=== PATIENT | male | born 1955 | race Caucasian/White ===

== ENCOUNTER → 2022-08-16 | Outpatient (CLI) | payer MEDICARE, MEDICAID ==
--- NOTE | 2022-08-16 17:34 | Diagnostic Imaging Report ---
INDICATION: Dyspnea and cough. TECHNIQUE: PA and lateral views of the chest are obtained with comparison made to study of 03/07/2015. FINDINGS: Heart size is within normal limits. Pulmonary vascularity is at the upper limits of normal. There is no pneumothorax or overt edema. Occasional calcified granulomas are seen bilaterally. There is no significant pleural fluid. Diffuse thoracic spondylosis has shown mild worsening. IMPRESSION: Mild worsening of chronic findings in the spine and pulmonary vascularity at the upper limits of normal. Otherwise, no overt edema or other acute abnormality is seen. Dictated by: Dictated on workstation # [id number]
== END ==
LOC: RAD FS 14:10
PROVIDERS: ATTEND Nurse Practitioner
DX: M47.814 Spondylosis without myelopathy or radiculopathy, thoracic region (principal); R06.02 Shortness of breath; R05.8 Other specified cough
CPT/HCPCS: 71046

== ENCOUNTER 2022-10-23 10:29 | Observation (INO) | payer MEDICARE, MEDICAID ==
[~2022-10-23] VITALS: Ht 177.8 cm; Wt 105.5 kg
--- NOTE | 2022-10-23 10:40 | ED Chest Pain ---
General Chief Complaint: Chest Pain Stated Complaint: CHEST PAIN; SOB Source: patient Exam Limitations: no limitations History of Present Illness Date Seen by Provider: Oct 23, 2022 Time Seen by Provider: 10:00 Initial Comments Patient is a 67-year-old male with history of CAD, COPD who presents with chest tightness waking him from sleep approximately 7 hours prior to arrival. Patient states he woke up with shortness of breath and chest tightness and was unable to sleep. He denies cough, sore throat, fever chills or sweats. He denies nausea vomiting sweats. No leg pain or swelling. States symptoms are more similar to previous acute coronary syndrome. Most recent heart catheter stent placement was 2 years ago. Aspirin and nitroglycerin given temporary resolution of symptoms. No other symptoms or complaints. Patient is a non-smoker. Timing/Duration: other Severity/Quality: other Location: other Radiation: other Activities at Onset: other Prior CP/Workup: other Modifying Factors: improves with other Allergies and Home Medications Allergies Coded Allergies: Penicillins (Verified Allergy, Unknown, 10/23/22) Sulfa (Sulfonamide Antibiotics) (Verified Allergy, Unknown, 10/23/22) morphine (Verified Allergy, Unknown, 10/23/22) Patient Home Medication List Home Medication List Reviewed: Yes Review of Systems Review of Systems Constitutional: see HPI EENTM: See HPI Respiratory: See HPI Cardiovascular: See HPI Gastrointestinal: See HPI Genitourinary: See HPI Musculoskeletal: see HPI Skin: see HPI Psychiatric/Neurological: See HPI Endocrine: See HPI Hematologic/Lymphatic: See HPI All Other Systems Reviewed Negative Unless Noted: No Past Jrhidax-Bgtlzm-Ypwnhs Hx Patient Social History Tobacco Use?: No Physical Exam Vital Signs Vital Signs - First Documented 10/23/22 10:29 Temp 36.8 Pulse 80 Resp 16 B/P (MAP) 145/76 (99) O2 Delivery Room Air Capillary Refill : Height, Weight, BMI Height: '" Weight: lbs. oz. kg; BMI Method: General Appearance: No Apparent Distress, WD/WN HEENT: PERRL/EOMI, TMs Normal Neck: Full Range of Motion, Normal Inspection Respiratory: Chest Non Tender, Lungs Clear Cardiovascular: Regular Rate, Rhythm, No Edema, Other (Mild trace peripheral edema) Gastrointestinal: Non Tender, Soft Extremity: Non Tender, No Calf Tenderness Neurologic/Psychiatric: Alert, Oriented x3 Focused Exam Sepsis Stage: Ruled Out Progress/Results/Core Measures Results/Orders Lab Results Laboratory Tests Test 10/23/22 10:32 Range/Units White Blood Count 8.6 4.3-11.0 10^3/uL Red Blood Count 4.64 4.30-5.52 10^6/uL Hemoglobin 14.3 13.3-17.7 g/dL Hematocrit 42 40-54 % Mean Corpuscular Volume 91 80-99 fL Mean Corpuscular Hemoglobin 31 25-34 pg Mean Corpuscular Hemoglobin Concent 34 32-36 g/dL Red Cell Distribution Width 12.3 10.0-14.5 % Platelet Count 144 130-400 10^3/uL Mean Platelet Volume 10.8 9.0-12.2 fL Immature Granulocyte % (Auto) 0 % Neutrophils (%) (Auto) 69 42-75 % Lymphocytes (%) (Auto) 18 12-44 % Monocytes (%) (Auto) 9 0-12 % Eosinophils (%) (Auto) 3 0-10 % Basophils (%) (Auto) 0 0-10 % Neutrophils # (Auto) 5.9 1.8-7.8 10^3/uL Lymphocytes # (Auto) 1.6 1.0-4.0 10^3/uL Monocytes # (Auto) 0.8 0.0-1.0 10^3/uL Eosinophils # (Auto) 0.3 0.0-0.3 10^3/uL Basophils # (Auto) 0.0 0.0-0.1 10^3/uL Immature Granulocyte # (Auto) 0.0 0.0-0.1 10^3/uL Percent Immature Platelet Fraction 4.6 0.0-7.6 % Sodium Level 139 135-145 MMOL/L Potassium Level 4.1 3.6-5.0 MMOL/L Chloride Level 102 98-107 MMOL/L Carbon Dioxide Level 26 21-32 MMOL/L Anion Gap 11 5-14 MMOL/L Blood Urea Nitrogen 19 H 7-18 MG/DL Creatinine 1.12 0.60-1.30 MG/DL Estimat Glomerular Filtration Rate 71 BUN/Creatinine Ratio 17 Glucose Level 175 H 70-105 MG/DL Calcium Level 9.5 8.5-10.1 MG/DL Corrected Calcium 9.4 8.5-10.1 MG/DL Total Bilirubin 1.7 H 0.1-1.0 MG/DL Aspartate Amino Transf (AST/SGOT) 25 5-34 U/L Alanine Aminotransferase (ALT/SGPT) 29 0-55 U/L Alkaline Phosphatase 28 L 40-136 U/L Troponin I < 0.30 <0.30 NG/ML Pro-B-Type Natriuretic Peptide 433.8 H <125.0 PG/ML Total Protein 6.7 6.4-8.2 GM/DL Albumin 4.1 3.2-4.5 GM/DL My Orders Orders - WILEY OLIVER DO Cbc With Automated Diff (10/23/22 10:34) Comprehensive Metabolic Panel (10/23/22 10:34) Troponin I Fs (10/23/22 10:34) Chest 1 View Ap/Pa Only (10/23/22 10:34) Ekg Tracing (10/23/22 10:34) Fentanyl Inj (Sublimaze Injection) (10/23/22 10:45) Ondansetron Injection (Zofran Injectio (10/23/22 10:45) Nitroglycerin Ointment (Nitrobid Ointme (10/23/22 10:45) Probnp Fs (10/23/22 10:46) Furosemide Injection (Lasix Injection) (10/23/22 11:30) Medications Given in ED Current Medications Medications Dose Ordered Sig/Ino Route Start Time Stop Time Status Last Admin Dose Admin Fentanyl Citrate 50 mcg ONCE ONCE IVP 10/23/22 10:45 10/23/22 10:46 DC 10/23/22 10:50 50 MCG Nitroglycerin 1 inch ONCE ONCE TOP 10/23/22 10:45 10/23/22 10:46 DC 10/23/22 10:50 1 INCH Ondansetron HCl 4 mg ONCE ONCE IVP 10/23/22 10:45 10/23/22 10:46 DC 10/23/22 10:50 4 MG Vital Signs/I&O 10/23/22 10:29 Temp 36.8 Pulse 80 Resp 16 B/P (MAP) 145/76 (99) O2 Delivery Room Air Departure Communication (Admissions) EKG: Sinus rhythm, incomplete right bundle branch block, nonspecific ST depression, no acute ST segment elevation. Chest x-ray: Cardiomegaly with mild pulmonary vascular congestion per radiology report. Atypical chest pain with shortness of breath with improvement with nitroglycerin Lasix and aspirin initial troponin and EKG nonacute. Will admit to the hospitalist service with anticipated cardiology consult. Impression Primary Impression: Chest pain Additional Impression: Dyspnea Disposition: ADMITTED INPATIENT Condition: Stable Transfer Method of Transfer: EMS Departure-Patient Inst. Decision time for Depature: 11:32 Referrals: JASBIR SIM APRN (PCP) Primary Care Physician H[facility]IL[facility] (Family) Primary Care Physician WILEY OLIVER DO Oct 23, 2022 10:40
[2022-10-23] MEDS ORDERED: NITROGLYCERIN 2% OINT 1 GM UNIT DOSE PACKET TOP ONE (10:45)
[2022-10-23] MEDS ORDERED: ONDANSETRON 4 MG/2 ML (SDV) Z0FRAN IVP ONE (10:45)
[2022-10-23] MEDS ORDERED: fentaNYL INJ 100 MCG/2 ML AMP IVP ONE (10:45)
--- NOTE | 2022-10-23 10:53 | Diagnostic Imaging Report ---
INDICATION: Chest pain. TECHNIQUE: Single-view chest at 10:39 a.m. CORRELATION STUDY: 08/16/2022. FINDINGS: Prior sternotomy change. Generator pack has been placed over the right hilar region, obscuring this portion of the anatomy. Heart size and mediastinum do appear to be enlarged and more prominent from prior. Vasculature is perhaps slightly increased. The lungs are clear with no consolidating infiltrate. There is no significant effusion or pneumothorax. IMPRESSION: 1. Interval enlargement of the heart size, mediastinum and borderline vasculature, may be largely attributed to technique. Early edema is not completely excluded. Dictated by: Dictated on workstation # [id number]
[2022-10-23 11:01] LABS: BASOPHILS % (AUTO) 0 % (0-10); EOSINOPHILS # (AUTO) 0.3 10^3/uL (0.0-0.3); EOSINOPHILS % (AUTO) 3 % (0-10); HEMATOCRIT 42 % (40-54); HEMOGLOBIN 14.3 g/dL (13.3-17.7); LYMPHOCYTES # (AUTO) 1.6 10^3/uL (1.0-4.0); LYMPHOCYTES % (AUTO) 18 % (12-44); MEAN CORPUSCULAR HEMOGLOBIN 31 pg (25-34); MEAN CORPUSCULAR HGB CONC 34 g/dL (32-36); MEAN CORPUSCULAR VOLUME 91 fL (80-99); MEAN PLATELET VOLUME 10.8 fL (9.0-12.2); MONOCYTES # (AUTO) 0.8 10^3/uL (0.0-1.0); MONOCYTES % (AUTO) 9 % (0-12); NEUTROPHILS # (AUTO) 5.9 10^3/uL (1.8-7.8); NEUTROPHILS % (AUTO) 69 % (42-75); PLATELET COUNT 144 10^3/uL (130-400); WHITE BLOOD COUNT 8.6 10^3/uL (4.3-11.0)
[2022-10-23 11:02] LABS: BUN/CREATININE RATIO 17; CARBON DIOXIDE 26 MMOL/L (21-32); CHLORIDE 102 MMOL/L (98-107); CREATININE SERUM 1.12 MG/DL (0.60-1.30); GFR ESTIMATED 71; GLUCOSE 175 MG/DL (70-105); POTASSIUM 4.1 MMOL/L (3.6-5.0); SODIUM 139 MMOL/L (135-145)
[2022-10-23 11:03] LABS: ALANINE AMINOTRANSFERASE 29 U/L (0-55); ALBUMIN 4.1 GM/DL (3.2-4.5); ALKALINE PHOSPHATASE 28 U/L (40-136); BILIRUBIN,TOTAL 1.7 MG/DL (0.1-1.0); CALCIUM 9.5 MG/DL (8.5-10.1); TOTAL PROTEIN 6.7 GM/DL (6.4-8.2)
[2022-10-23] MEDS ORDERED: FUROSEMIDE 40 MG/4 ML INJ (LASIX) IVP ONE (11:30)
[2022-10-23] MEDS ORDERED: ONDANSETRON 4 MG (ZOFRAN) ORAL DISSOLVE TAB PO PRN (13:45)
[2022-10-23] MEDS ORDERED: polyethylene glycoL POWDER 17 GM (MIRALAX) PACK PO PRN (13:45)
[2022-10-23] MEDS ORDERED: diphenhydrAMINE 25 MG TAB (BENADRYL) PO PRN (13:45)
[2022-10-23] MEDS ORDERED: NS IV 500 ML 500 ML IV PRN (13:45)
[2022-10-23] MEDS ORDERED: ACETAMINOPHEN 325 MG TABLET PO PRN (13:45)
[2022-10-23] MEDS ORDERED: MELATONIN 3 MG TABLET PO PRN (13:45)
[2022-10-23] MEDS ORDERED: diphenhydrAMINE 50 MG/ML INJ (BENADRYL) IVP PRN (13:45)
[2022-10-23] MEDS ORDERED: BISACODYL 10 MG SUPP (DULCOLAX) PR PRN (13:45)
[2022-10-23] MEDS ORDERED: ANTACID SUSP 30 ML UDC (MYLANTA) PO PRN (13:45)
[2022-10-23] MEDS ORDERED: ONDANSETRON 4 MG/2 ML (SDV) Z0FRAN IV PRN (13:45)
[2022-10-23] MEDS ORDERED: FLU QUAD HIGH DOSE 240 MCG/0.7 ML 2022-23 (FLUZONE) IM ONE (15:45)
[2022-10-23 16:28] VITALS: BP 143/71
--- NOTE | 2022-10-23 16:39 | Consultation-Cardiology ---
HPI-Cardiology Cardiology Consultation: Date of Consultation 10/23/22 Time Seen by a Provider: 16:05 Date of Admission 10-23-22 Attending Physician Shaina Belcher Aprn Admitting Physician Admitting Physician: Juliane Tim MD Attending Physician: Juliane Tim MD Consulting Physician El Griggs MD HPI: Chief Complaint: Chest pain Progressive dyspnea Mr. Munguia is a 67 yr old male admitted to [facility] from the [facility] ED. He reports increasing SOB over the course of the last 2 days. He states this morning he woke up from sleep around 3 a.m. feeling like he couldn't catch his breath and LACW discomfort which he describes as a stabbing pain that would come and go. He reports he has had chronic LACW pain since his CABG 7 yrs ago, however this episode of stabbing chest pain was worse than usual. He reports it was "a claribel le" worse with movement. He denies any increase in his SOB with movement. He reports increasing bilat pedal edema which has not improved with elevation. He denies any palpitations. He reports he had a cardiac cath in Jun [address] [place] [address] Jean (his reclamation engineer) because of his continuing chest pain since CABG. He reports he did not need any coronary intervention at that time. He does state he had stents placed by Dr. Jean approx 2 yrs ago, but he does not know the details. He states he lives at home alone, but has in home health nurses that come a few times a week. He reports his SOB is better at this time, but not completely resolved. He does report a dull LACW ache at this time, but states this is consistent with his chronic chest discomfort. No c/o syncope or near syncope. He reports he had chills on Sunday. No report of fever. No c/o n/v/d. He has a Bio-tel 30 day event monitor in place per his primary reclamation engineer Dr. Jean which has been on for approx a week and a 1/2. He reports he is unsure of why he is wearing it, but thinks it is because of his chronic chest pain. Denies any arrhythmia, syncope, pre-syncope or palpitations. Review of Systems-Cardiology Review of Systems Constitutional: No chills, No fever Eyes: No vision change Ears/Nose/Throat: No epistaxis, No recent hearing loss Respiratory: As described under HPI Cardiovascular: As described under HPI Gastrointestinal: As described under HPI Genitourinary: No hematuria Skin: No rash on exposed areas, No ulcerations on exposed areas Psychiatric/Neurological: No anxiety, No depression, No seizure, No focal weakness, No syncope Hematologic: No bleeding abnormalities All Other Systems Reviewed Negative Unless Noted: No MHJ-Qoogsj-Lbpdkf Hx Patient Social History Smoking Status: Never a Smoker Have you traveled recently?: No Alcohol Use?: No Pt feels they are or have been: No Past Medical History PMH As described under Assessment. Family Medical History Family Medical History: He reports his father had CAD and an AR. He reports his mother had CAD, DM and cancer Allergies and Home Medications Allergies Coded Allergies: Penicillins (Verified Allergy, Unknown, 10/23/22) Sulfa (Sulfonamide Antibiotics) (Verified Allergy, Unknown, 10/23/22) morphine (Verified Allergy, Unknown, 10/23/22) Physical Exam-Cardiology Physical Exam Vital Signs/I&O 10/23/22 10/24/22 10/24/22 10/24/22 20:50 00:22 01:00 03:08 Temp 36.8 36.8 Pulse 62 60 69 Resp 20 20 B/P (MAP) 115/59 (77) 126/73 (90) Pulse Ox 92 92 O2 Delivery Room Air Room Air Room Air 10/24/22 00:00 Intake Total 565 ml Balance 565 ml Capillary Refill : Less Than 3 Seconds Constitutional: AAO x 3, well-developed, well-nourished HEENT: PERRL, hearing is well preserved, oral hygience is good Neck: No carotid bruit; carotid pulses are 2 + bilaterally Respiratory: No accessory muscle use, No respiratory distress; chest expansion is symmetric, chest is bilaterally symmetric, other (diminished bases bilat) Cardiovascular: regular rate-rhythm; No JVD; S1 and S2 Gastrointestinal: No tender; soft, round, audible bowel sounds Extremities: other (mild to mod bilat LE swelling) Neurologic/Psychiatric: grossly intact (moves all extremities) Skin: No rash on exposed areas, No ulcerations on exposed areas Data Review Labs Laboratory Tests 10/23/22 10:32: White Blood Count 8.6, Red Blood Count 4.64, Hemoglobin 14.3, Hematocrit 42, Mean Corpuscular Volume 91, Mean Corpuscular Hemoglobin 31, Mean Corpuscular Hemoglobin Concent 34, Red Cell Distribution Width 12.3, Platelet Count 144, Mean Platelet Volume 10.8, Immature Granulocyte % (Auto) 0, Neutrophils (%) (Auto) 69, Lymphocytes (%) (Auto) 18, Monocytes (%) (Auto) 9, Eosinophils (%) (Auto) 3, Basophils (%) (Auto) 0, Neutrophils # (Auto) 5.9, Lymphocytes # (Auto) 1.6, Monocytes # (Auto) 0.8, Eosinophils # (Auto) 0.3, Basophils # (Auto) 0.0, Immature Granulocyte # (Auto) 0.0, Percent Immature Platelet Fraction 4.6, Sodium Level 139, Potassium Level 4.1, Chloride Level 102, Carbon Dioxide Level 26, Anion Gap 11, Blood Urea Nitrogen 19H, Creatinine 1.12, Estimat Glomerular Filtration Rate 71, BUN/Creatinine Ratio 17, Glucose Level 175H, Calcium Level 9.5, Corrected Calcium 9.4, Total Bilirubin 1.7H, Aspartate Amino Transf (AST/SGOT) 25, Alanine Aminotransferase (ALT/SGPT) 29, Alkaline Phosphatase 28L, Troponin I < 0.30, Pro-B-Type Natriuretic Peptide 433.8H, Total Protein 6.7, Albumin 4.1 10/23/22 16:43: Troponin I < 0.028 10/24/22 04:49: White Blood Count 8.0, Red Blood Count 4.46, Hemoglobin 13.9, Hematocrit 41, Mean Corpuscular Volume 93, Mean Corpuscular Hemoglobin 31, Mean Corpuscular Hem oglobin Concent 34, Red Cell Distribution Width 12.1, Platelet Count 133, Mean Platelet Volume 10.4, Immature Granulocyte % (Auto) 0, Neutrophils (%) (Auto) 69, Lymphocytes (%) (Auto) 18, Monocytes (%) (Auto) 9, Eosinophils (%) (Auto) 4, Basophils (%) (Auto) 0, Neutrophils # (Auto) 5.5, Lymphocytes # (Auto) 1.4, Monocytes # (Auto) 0.7, Eosinophils # (Auto) 0.3, Basophils # (Auto) 0.0, Immature Granulocyte # (Auto) 0.0, Percent Immature Platelet Fraction 4.7, Sodium Level 140, Potassium Level 4.2, Chloride Level 101, Carbon Dioxide Level 28, Anion Gap 11, Blood Urea Nitrogen 25H, Creatinine 1.36H, Estimat Glomerular Filtration Rate 56, BUN/Creatinine Ratio 18, Glucose Level 134H, Calcium Level 9.3, Magnesium Level 1.9, Triglycerides Level 79, Cholesterol Level 110, LDL Cholesterol Direct 63, VLDL Cholesterol 16, HDL Cholesterol 32L Radiology NAME: HIPOLITO MUNGUIA [facility] REC#: [id number] PT STATUS: REG ER : 1955 PHYSICIAN: WILEY OLIVER DO ADMIT DATE: 10/23/22/ER FS Signed Date of Exam:10/23/22 CHEST 1 VIEW AP/PA ONLY INDICATION: Chest pain. TECHNIQUE: Single-view chest at 10:39 a.m. CORRELATION STUDY: 08/16/2022. FINDINGS: Prior sternotomy change. Generator pack has been placed over the right hilar region, obscuring this portion of the anatomy. Heart size and mediastinum do appear to be enlarged and more prominent from prior. Vasculature is perhaps slightly increased. The lungs are clear with no consolidating infiltrate. There is no significant effusion or pneumothorax. IMPRESSION: 1. Interval enlargement of the heart size, mediastinum and borderline vasculature, may be largely attributed to technique. Early edema is not completely excluded. Dictated by: Dictated on workstation # [id number] Dict: 10/23/22 1046 Trans: 10/23/22 1110 [id number] Interpreted by: ANGELES MATTSON DO Electronically signed by: ANGELES MATTSON DO 10/23/22 1110 A/P-Cardiology Assessment/Admission Diagnosis Progressive dyspnea CHF Chest pain - undetermined etiology CAD - reports h/o 5 vessel CABG at [facility] in [place], [place] in 2016 - reports h/o stents at [facility] by Dr. Jean in 2020 - reports h/o cardiac cath at [facility] in Jun 2022 (no intervention per pt report) - he currently has a 30 day Bio-tel event monitor in place per his primary reclamation engineer (Dr. Jean at [facility]) HTN HLD DM 2 COPD - reports he is to be on oxygen at hs and PRN (has not been using) H/O cholecystectomy and appendectomy GERD BPH Discussion and Recomendations Chest pain of undetermined etiology - acute chest pain and chronic chest pain - no evidence of ACS thus far CHF - Echocardiogram to eval structure and function - treat with diuretics H/O CAD - reports recent cardiac cath in Jun [address] [place] [address] Jean (primary reclamation engineer) for which intervention was not indicated per pt report - continue Plavix and ASA and BB HLD - continue home statin HTN - controlled - continue home medications Property [employer] lab closely and replace electrolytes as indicated Request records from [facility] (CABG report) and [facility] and [facility] of recent cardiac cath and previous stent placement Further recs will be based on his hospital course We would like to thank medical services for this consult Clinical Quality Measures AMI/AHF: ASA po Prior to arrival: Yes ([id number]/X1 NITRO) NICK ORTEGA Oct 23, 2022 16:39
--- NOTE | 2022-10-23 17:32 | Consultation-Cardiology ---
HPI-Cardiology Cardiology Consultation: Date of Consultation 10/23/22 Time Seen by a Provider: 17:00 Date of Admission Attending Physician Shaina Belcher Aprn Admitting Physician Admitting Physician: Juliane Tim MD Attending Physician: Juliane Tim MD Consulting Physician VICTOR M TRISTAN MD, MA, FACP, FACC, FSCAI, CCDS HPI: Chief Complaint: Chest pain Progressive dyspnea Mr. Mcneal is a 67 yr old male admitted to [facility] from the [facility] ED. He reports increasing SOB over the course of the last 2 days. He states this morning he woke up from sleep around 3 a.m. feeling like he couldn't catch his breath and LACW discomfort which he describes as a stabbing pain that would come and go. He reports he has had chronic LACW pain since his CABG 7 yrs ago, however this episode of stabbing chest pain was worse than usual. He reports it was "a little" worse with movement. He denies any increase in his SOB with movement. He reports increasing bilat pedal edema which has not improved with elevation. He denies any palpitations. He reports he had a cardiac cath in Jun 2022 at [facility] by Dr. Jean (his sledger) because of his continuing chest pain since CABG. He reports he did not need any coronary intervention at that time. He does state he had stents placed by Dr. Jean approx 2 yrs ago, but he does not know the details. He states he lives at home alone, but has in home health nurses that come a few times a week. He reports his SOB is better at this time, but not completely resolved. He does report a dull LACW ache at this time, but states this is consistent with his chronic chest discomfort. No c/o syncope or near syncope. He reports he had chills on Sunday. No report of fever. No c/o n/v/d. He has a Bio-tel [address] monitor in place per his primary sledger Dr. Jean which has been on for approx a week and a 1/2. He reports he is unsure of why he is wearing it, but thinks it is because of his chronic chest pain. Denies any arrhythmia, syncope, pre-syncope or palpitations. Review of Systems-Cardiology Review of Systems Constitutional: No chills, No fever Eyes: No vision change Ears/Nose/Throat: No epistaxis, No recent hearing loss Respiratory: As described under HPI Cardiovascular: As described under HPI Gastrointestinal: As described under HPI Genitourinary: No hematuria Skin: No rash on exposed areas, No ulcerations on exposed areas Psychiatric/Neurological: No anxiety, No depression, No seizure, No focal weakness, No syncope Hematologic: No bleeding abnormalities All Other Systems Reviewed Negative Unless Noted: No TXO-Mcpyor-Muqnoy Hx Patient Social History Smoking Status: Never a Smoker Have you traveled recently?: No Alcohol Use?: No Pt feels they are or have been: No Past Medical History PMH As described under Assessment. Family Medical History Family Medical History: He reports his father had CAD and an OK. He reports his mother had CAD, DM and cancer Allergies and Home Medications Allergies Coded Allergies: Penicillins (Verified Allergy, Unknown, 10/23/22) Sulfa (Sulfonamide Antibiotics) (Verified Allergy, Unknown, 10/23/22) morphine (Verified Allergy, Unknown, 10/23/22) Patient Home Medication List Home Medication List Reviewed: Yes Physical Exam-Cardiology Physical Exam Vital Signs/I&O 10/23/22 10/23/22 10/23/22 10/23/22 10:29 12:54 13:55 16:28 Temp 36.8 36.3 36.6 Pulse 80 77 68 Resp 16 16 18 B/P (MAP) 145/76 (99) 131/81 143/71 (95) Pulse Ox 96 O2 Delivery Room Air Room Air Room Air Room Air Capillary Refill : Less Than 3 Seconds Constitutional: AAO x 3, well-developed, well-nourished HEENT: PERRL, hearing is well preserved, oral hygience is good Neck: No carotid bruit; carotid pulses are 2 + bilaterally Respiratory: No accessory muscle use, No respiratory distress; chest expansion is symmetric, chest is bilaterally symmetric, other (diminished bases bilat) Cardiovascular: regular rate-rhythm; No JVD; S1 and S2 Gastrointestinal: No tender; soft, round, audible bowel sounds Extremities: other (mild to mod bilat LE swelling) Neurologic/Psychiatric: grossly intact (moves all extremities) Skin: No rash on exposed areas, No ulcerations on exposed areas Data Review Labs Laboratory Tests 10/23/22 10:32: White Blood Count 8.6, Red Blood Count 4.64, Hemoglobin 14.3, Hematocrit 42, Mean Corpuscular Volume 91, Mean Corpuscular Hemoglobin 31, Mean Corpuscular Hemoglobin Concent 34, Red Cell Distribution Width 12.3, Platelet Count 144, Mean Platelet Volume 10.8, Immature Granulocyte % (Auto) 0, Neutrophils (%) (Auto) 69, Lymphocytes (%) (Auto) 18, Monocytes (%) (Auto) 9, Eosinophils (%) (Auto) 3, Basophils (%) (Auto) 0, Neutrophils # (Auto) 5.9, Lymphocytes # (Auto) 1.6, Monocytes # (Auto) 0.8, Eosinophils # (Auto) 0.3, Basophils # (Auto) 0.0, Immature Granulocyte # (Auto) 0.0, Percent Immature Platelet Fraction 4.6, Sodium Level 139, Potassium Level 4.1, Chloride Level 102, Carbon Dioxide Level 26, Anion Gap 11, Blood Urea Nitrogen 19H, Creatinine 1.12, Estimat Glomerular Filtration Rate 71, BUN/Creatinine Ratio 17, Glucose Level 175H, Calcium Level 9.5, Corrected Calcium 9.4, Total Bilirubin 1.7H, Aspartate Amino Transf (AST/SGOT) 25, Alanine Aminotransferase (ALT/SGPT) 29, Alkaline Phosphatase 28L, Troponin I < 0.30, Pro-B-Type Natriuretic Peptide 433.8H, Total Protein 6.7, Albumin 4.1 10/23/22 16:43: Troponin I < 0.028 A/P-Cardiology Assessment/Admission Diagnosis Progressive dyspnea Mild, acute diastolic CHF Chest pain - undetermined etiology CAD - reports h/o 5 vessel CABG at [facility] in [place], [place] in 2015 - reports h/o stents at [facility] by Dr. Jean in 2020 - reports h/o cardiac cath at [facility] in Jun 2022 (no intervention per pt report) - he currently has a 30 day Bio-tel event monitor in place per his primary sledger (Dr. Jean at [facility]) HTN HLD DM 2 COPD - reports he is to be on oxygen at hs and PRN (has not been using) H/O cholecystectomy and appendectomy GERD BPH Discussion and Recomendations Chest pain of undetermined etiology - acute chest pain and chronic chest pain - no evidence of ACS thus far CHF - Echocardiogram to eval structure and function - treat with diuretics H/O CAD - reports recent cardiac cath in Jun [address] [place] [address] Jean (primary sledger) for which intervention was not indicated per pt report - continue Plavix and ASA and BB HLD - continue home statin HTN - controlled - continue home medications D[employer]er lab closely and replace electrolytes as indicated Request records from [facility] (CABG report) and [facility] and [facility] of recent cardiac cath and previous stent placement Further recs will be based on his hospital course We would like to thank medical services for this consult Clinical Quality Measures AMI/AHF: ASA po Prior to arrival: Yes (324MGASA/X1 NITRO) VICTOR M TRISTAN MD FACP FACC CCDS Oct 23, 2022 17:32
[2022-10-23] MEDS: TAMSULOSIN 0.4 MG (FLOMAX) CAP PO SCH (17:57)
[2022-10-23 19:14] VITALS: BP 117/61
[2022-10-23] MEDS: DOCUSATE SODIUM 100 MG (COLACE) CAP PO SCH (20:57)
[2022-10-24] VITALS (7 sets, daily range): BP systolic 115–138; BP diastolic 59–73
[2022-10-24 05:01] LABS: MEAN CORPUSCULAR VOLUME 93 fL (80-99); NEUTROPHILS % (AUTO) 69 % (42-75)
[2022-10-24 05:03] LABS: BASOPHILS % (AUTO) 0 % (0-10); EOSINOPHILS # (AUTO) 0.3 10^3/uL (0.0-0.3); EOSINOPHILS % (AUTO) 4 % (0-10); HEMATOCRIT 41 % (40-54); HEMOGLOBIN 13.9 g/dL (13.3-17.7); LYMPHOCYTES # (AUTO) 1.4 10^3/uL (1.0-4.0); LYMPHOCYTES % (AUTO) 18 % (12-44); MEAN CORPUSCULAR HEMOGLOBIN 31 pg (25-34); MEAN CORPUSCULAR HGB CONC 34 g/dL (32-36); MEAN PLATELET VOLUME 10.4 fL (9.0-12.2); MONOCYTES # (AUTO) 0.7 10^3/uL (0.0-1.0); MONOCYTES % (AUTO) 9 % (0-12); NEUTROPHILS # (AUTO) 5.5 10^3/uL (1.8-7.8); PLATELET COUNT 133 10^3/uL (130-400)
[2022-10-24 05:18] LABS: CALCIUM 9.3 MG/DL (8.5-10.1); CREATININE SERUM 1.36 MG/DL (0.60-1.30); MAGNESIUM 1.9 MG/DL (1.6-2.4); POTASSIUM 4.2 MMOL/L (3.6-5.0)
[2022-10-24] MEDS: POTASSIUM CL 10MEQ/50ML IVPB 50 ML IV SCH (05:29)
[2022-10-24] MEDS: KCL 20 MEQ TAB (K-DUR) PO SCH (05:30)
[2022-10-24] MEDS: MAGNESIUM 1 GM/100 ML IVPB 100 ML IV SCH ×2 (05:53→06:09)
[2022-10-24] MEDS: ASPIRIN 81 MG CHEW (CHILDREN'S ASA) PO SCH (08:04)
[2022-10-24] MEDS: ISOSORBIDE MONONITRATE 30 MG (IMDUR) TAB PO SCH (08:04)
[2022-10-24] MEDS: PANTOPRAZOLE 40 MG (PROTONIX) TAB PO SCH (08:04)
[2022-10-24] MEDS: DOCUSATE SODIUM 100 MG (COLACE) CAP PO SCH ×2 (08:04→21:11)
[2022-10-24] MEDS: amLODIPine 10 MG (NORVASC) TAB PO SCH (08:05)
[2022-10-24] MEDS: CLOPIDOGREL 75 MG (PLAVIX) TABLET PO SCH (08:05)
[2022-10-24] MEDS ORDERED: amLODIPine 5 MG (NORVASC) TAB PO SCH (09:00)
--- NOTE | 2022-10-24 11:27 | Progress Note - Cardiology ---
Cardiology SOAP Progress Note Subjective: States he is feeling better today SOB has improved Chest pain is at his baseline No c/o n/v/d Objective: I&O/Vital Signs 10/24/22 10/24/22 10/25/22 10/25/22 21:50 23:29 03:16 06:12 Temp 36.9 37.1 Pulse 67 64 Resp 18 20 B/P (MAP) 127/70 (89) 127/72 (90) Pulse Ox 96 96 96 O2 Delivery Nasal Cannula Nasal Cannula Nasal Cannula Nasal Cannula O2 Flow Rate 2.00 2.00 2.00 2.00 10/25/22 07:26 Temp 36.6 Pulse 60 Resp 18 B/P (MAP) 113/65 (81) Pulse Ox 96 O2 Delivery Nasal Cannula O2 Flow Rate 2.50 10/25/22 00:00 Intake Total 1660 ml Balance 1660 ml Constitutional: AAO x 3, well-developed, well-nourished Respiratory: No accessory muscle use, No respiratory distress; chest expansion is symmetric, chest is bilaterally symmetric, rhonchi (scattered) Cardiovascular: regular rate-rhythm; No JVD; S1 and S2 Gastrointestional: No tender; soft, round, audible bowel sounds Extremities: no lower extremity edema bilateral Neurologic/Psychiatric: grossly intact (moves all extremities) Skin: No rash on exposed areas, No ulcerations on exposed areas Results/Procedures: Labs Laboratory Tests 10/25/22 05:10: White Blood Count 9.3, Red Blood Count 4.52, Hemoglobin 14.1, Hematocrit 42, Mean Corpuscular Volume 92, Mean Corpuscular Hemoglobin 31, Mean Corpuscular Hemoglobin Concent 34, Red Cell Distribution Width 11.9, Platelet Count 135, Mean Platelet Volume 10.4, Immature Granulocyte % (Auto) 0, Neutrophils (%) (Auto) 68, Lymphocytes (%) (Auto) 18, Monocytes (%) (Auto) 10, Eosinophils (%) (Auto) 4, Basophils (%) (Auto) 0, Neutrophils # (Auto) 6.3, Lymphocytes # (Auto) 1.7, Monocytes # (Auto) 0.9, Eosinophils # (Auto) 0.4H, Basophils # (Auto) 0.0, Immature Granulocyte # (Auto) 0.0, Percent Immature Platelet Fraction 3.8, Sodium Level 139, Potassium Level 3.8, Chloride Level 100, Carbon Dioxide Level 29, Anion Gap 10, Blood Urea Nitrogen 26H, Creatinine 1.39H, Estimat Glomerular Filtration Rate 55, BUN/Creatinine Ratio 19, Glucose Level 148H, Calcium Level 9.5, Magnesium Level 2.0 A/P: Assessment: Progressive dyspnea - improved Mild, acute diastolic CHF - clinically improved Chest pain - chronic - at usual baseline (has had since CABG 7 yrs ago) CAD - reports h/o 5 vessel CABG at [facility] in [place], [place] in 2015 - reports h/o stents at [facility] by Dr. Jean in 2020 - reports h/o cardiac cath at [facility] in Jun 2022 (no intervention per pt report) - he currently has a 30 day Bio-tel event monitor in place per his primary sand carrier (Dr. Jean at [facility]) HTN - controlled HLD - statin DM 2 COPD - reports he is to be on oxygen at hs and PRN (has not been using) H/O cholecystectomy and appendectomy GERD BPH Plan: Chest pain of undetermined etiology - acute chest pain and chronic chest pain - no evidence of ACS - chest pain is back to his baseline CHF - Echocardiogram to eval structure and function today - treat with diuretics H/O CAD - reports recent cardiac cath in Jun [address] [place] [address] Jean (primary sand carrier) for which intervention was not indicated per pt report - continue Plavix and ASA and BB HLD - continue home statin HTN - controlled - continue home medications Social Services Designee lab closely and replace electrolytes as indicated Request records from [facility] (CABG report) and [facility] and [facility] of recent cardiac cath and previous stent placement - we have again requested these Clinical Quality Measures AMI/AHF: ASA po Prior to arrival: Yes (324MGASA/X1 NITRO) NICK ORTEGA Oct 24, 2022 11:27
[2022-10-24] MEDS ORDERED: FUROSEMIDE 40 MG (LASIX) TAB PO NR (12:00)
[2022-10-24] MEDS ORDERED: ASPI-1238 PO (15:40)
[2022-10-24] MEDS ORDERED: MIRA50TA PO (15:40)
[2022-10-24] MEDS ORDERED: DICL75TA2 PO (15:40)
[2022-10-24] MEDS ORDERED: CETI10TA17 PO (15:40)
[2022-10-24] MEDS ORDERED: AMLO-251 PO (15:40)
[2022-10-24] MEDS ORDERED: LISI40TA9 PO (15:40)
[2022-10-24] MEDS ORDERED: TMSL.4C PO (15:40)
[2022-10-24] MEDS ORDERED: ISOS30TA82 PO (15:40)
[2022-10-24] MEDS ORDERED: ATOR20TA66 PO (15:40)
[2022-10-24] MEDS ORDERED: METF-397 PO (15:40)
[2022-10-24] MEDS ORDERED: CLOP75TA28 PO (15:40)
[2022-10-24] MEDS ORDERED: PANT20TA18 PO (15:40)
[2022-10-24] MEDS ORDERED: IBUP-2473 PO (15:40)
--- NOTE | 2022-10-24 16:38 | Progress Note - Cardiology ---
Cardiology SOAP Progress Note Subjective: No cp (except chronic persistent L upper chest wall pain) or palp or syncope or shortness of breath No n/v/d Dizziness has resolved No focal weakness Objective: I&O/Vital Signs 10/24/22 10/24/22 10/24/22 10/24/22 07:49 08:00 08:30 12:05 Temp 37.6 37.7 Pulse 71 69 75 Resp 20 18 B/P (MAP) 117/64 (81) 138/72 (94) Pulse Ox 90 90 O2 Delivery Room Air Room Air Room Air 10/24/22 10/24/22 12:58 15:49 Temp 38.0 Pulse 69 76 Resp 16 B/P (MAP) 130/62 (84) Pulse Ox 87 O2 Delivery Room Air 10/24/22 00:00 Intake Total 565 ml Balance 565 ml Constitutional: AAO x 3, well-developed, well-nourished Respiratory: No accessory muscle use, No respiratory distress; chest expansion is symmetric, chest is bilaterally symmetric, rhonchi (scattered) Cardiovascular: regular rate-rhythm; No JVD; S1 and S2 Gastrointestional: No tender; soft, round, audible bowel sounds Extremities: no lower extremity edema bilateral Neurologic/Psychiatric: grossly intact (moves all extremities) Skin: No rash on exposed areas, No ulcerations on exposed areas Results/Procedures: Labs Laboratory Tests 10/23/22 16:43: Troponin I < 0.028 10/24/22 04:49: White Blood Count 8.0, Red Blood Count 4.46, Hemoglobin 13.9, Hematocrit 41, Mean Corpuscular Volume 93, Mean Corpuscular Hemoglobin 31, Mean Corpuscular Hemoglobin Concent 34, Red Cell Distribution Width 12.1, Platelet Count 133, Mean Platelet Volume 10.4, Immature Granulocyte % (Auto) 0, Neutrophils (%) (Auto) 69, Lymphocytes (%) (Auto) 18, Monocytes (%) (Auto) 9, Eosinophils (%) (Auto) 4, Basophils (%) (Auto) 0, Neutrophils # (Auto) 5.5, Lymphocytes # (Auto) 1.4, Monocytes # (Auto) 0.7, Eosinophils # (Auto) 0.3, Basophils # (Auto) 0.0, Immature Granulocyte # (Auto) 0.0, Percent Immature Platelet Fraction 4.7, Sodium Level 140, Potassium Level 4.2, Chloride Level 101, Carbon Dioxide Level 28, Anion Gap 11, Blood Urea Nitrogen 25H, Creatinine 1.36H, Estimat Glomerular Filtration Rate 56, BUN/Creatinine Ratio 18, Glucose Level 134H, Calcium Level 9.3, Magnesium Level 1.9, Triglycerides Level 79, Cholesterol Level 110, LDL Cholesterol Direct 63, VLDL Cholesterol 16, HDL Cholesterol 32L Laboratory Tests 10/23/22 10:32 10/24/22 04:49 A/P: Assessment: Progressive dyspnea - improved - Echo on 10/24/22: LVEF 55-60%, mod enlargement of both atria, PASP 45-50 mmHg MARISA - 1, likely due to intravascular volume depletion Mild, acute diastolic CHF - clinically improved Chest pain - chronic - at usual baseline (has had since CABG 7 yrs ago) CAD - reports h/o 5 vessel CABG at [facility] in [place], [place] in 2015 - reports h/o stents at [facility] by Dr. Jean in 2020 - reports h/o cardiac cath at [facility] in Jun 2022 (no intervention per pt report) - he currently has a 30 day Bio-tel event monitor in place per his primary child care director (Dr. Jean at [facility]) HTN - controlled HLD - statin DM 2 COPD - reports he is to be on oxygen at hs and PRN (has not been using) H/O cholecystectomy and appendectomy GERD BPH Plan: * Stop diuretics * Replenish K * I discussed his ech results with him * Continue previous home meds * Ok to d/c from cardiac standpoint * Cardiac f/u is with his primary child care director Dr Jean Clinical Quality Measures AMI/AHF: ASA po Prior to arrival: Yes (324MGASA/X1 NITRO) VICTOR M TRISTAN MD FACP FAC CCDS Oct 24, 2022 16:38
[2022-10-24] MEDS: TAMSULOSIN 0.4 MG (FLOMAX) CAP PO SCH (17:14)
--- NOTE | 2022-10-24 19:05 | History & Physical-Hospitalist ---
History of Present Illness HPI/Chief Complaint Rober Mcneal is a 67 year old male with PMH HTN, T2DM, HLD, CAD s/p CABG, COPD, GERD, BPH, obesity, who presented with chest pain. The pain comes and goes. It is sharp and non-radiating in the center of his chest. He has also been feeling short of breath for the past couple days. He denies cough. He denies palpitations. He denies diaphoresis and nausea. His appetite has been good. He denies fevers and chills. He follows with a ticket scheduler in the area. He says his last assessment was in June when they performed a left heart cath but he says no intervention was needed at that time. Source: patient Exam Limitations: no limitations Date Seen 10/24/22 Time Seen by a Provider: 10:00 Attending Physician Shaina Belcher Aprn PCP Admitting Physician: Pio Jurado MD Attending Physician: Pio Jurado MD Referring Physician Date of Admission Oct 23, 2022 at 13:47 Home Medications & Allergies Home Medications Reviewed patient Home Medication Reconciliation performed by pharmacy medication reconciliations pc maintenance technician and/or nursing. Patients Allergies have been reviewed. Allergies Allergies Coded Allergies Penicillins (Verified Allergy, Unknown, 10/23/22) Sulfa (Sulfonamide Antibiotics) (Verified Allergy, Unknown, 10/23/22) morphine (Verified Allergy, Unknown, 10/23/22) Past Htilxpq-Yhxrzk-Vllkoe Hx Patient Social History Tobacco Use?: No Smoking Status: Never a Smoker Smokeless Tobacco Frequency: Never a User Use of E-Cig and/or Vaping dev: No Use of E-Cig and/or Vaping Law: Never a User Substance use?: No Alcohol Use?: No Pt feels they are or have been: No Immunizations Up To Date Tetanus Booster (TDap): More Than 5 Years Current Status Advance Directives: No Advance Directive Location: PATIENT IN THE PROCESS OF FILING Communicates: Verbally Primary Language: Malawian Preferred Spoken Language: Malawian Is interpretation needed?: No Sensory deficits: Vision impairment Implanted or Applied Medical D: Stents Past Medical History COPD Coronary Artery Disease, High Cholesterol, Hypertension Benign Prostatic Hyperpl Gastroesophageal Reflux Diabetes, Non-Insulin dep Family Medical History No Pertinent Family Hx Review of Systems Constitutional: no symptoms reported EENTM: no symptoms reported Respiratory: short of breath Cardiovascular: chest pain Gastrointestinal: no symptoms reported Physical Exam Physical Exam Vital Signs Vital Signs - First Documented 10/23/22 10/23/22 10/24/22 10:29 12:54 20:17 Temp 36.8 Pulse 80 Resp 16 B/P (MAP) 145/76 (99) Pulse Ox 96 O2 Delivery Room Air O2 Flow Rate 2.00 Capillary Refill : Less Than 3 Seconds Height, Weight, BMI Height: '" Weight: lbs. oz. kg; 33.40 BMI Method: General Appearance: No Apparent Distress, Obese HEENT: PERRL/EOMI, Pharynx Normal Neck: Normal Inspection, Supple Respiratory: Lungs Clear, No Respiratory Distress Cardiovascular: Regular Rate, Rhythm, No Murmur Gastrointestinal: Normal Bowel Sounds, Non Tender, Soft Extremity: No Inflammation; Pedal Edema Neurologic/Psychiatric: Alert, Normal Mood/Affect Skin: Normal Color, Warm/Dry Results Results/Procedures Labs Laboratory Tests 10/23/22 10:32 10/24/22 04:49 10/25/22 05:10 Patient resulted labs reviewed. Imaging: Reviewed Imaging Report Assessment/Plan Admission Diagnosis Chest pain Admission Status: Observation Assessment and Plan Chest pain CAD s/p CABG HTN HLD T2DM HFpEF GERD BPH Obesity Cardiology following Troponins negative Echo with normal EF, moderate biatrial enlargement, elevated PASP Stop diuretics Stable for discharge from Cardiology standpoint Continue home meds Likely home tomorrow Diagnosis/Problems Diagnosis/Problems (1) Chest pain Status: Acute (2) CAD (coronary artery disease) Status: Chronic (3) HTN (hypertension) Status: Chronic (4) HLD (hyperlipidemia) Status: Chronic (5) T2DM (type 2 diabetes mellitus) Status: Chronic (6) Obesity Status: Chronic (7) BPH (benign prostatic hyperplasia) Status: Chronic (8) GERD (gastroesophageal reflux disease) Status: Chronic Clinical Quality Measures AMI/AHF: ASA po Prior to arrival: Yes (324MGASA/X1 NITRO) PIO JURADO MD Oct 24, 2022 19:05
[2022-10-25 03:16] VITALS: BP 127/72
[2022-10-25 05:21] LABS: HEMOGLOBIN 14.1 g/dL (13.3-17.7); PLATELET COUNT 135 10^3/uL (130-400)
[2022-10-25 05:23] LABS: BASOPHILS % (AUTO) 0 % (0-10); EOSINOPHILS # (AUTO) 0.4 10^3/uL (0.0-0.3); EOSINOPHILS % (AUTO) 4 % (0-10); HEMATOCRIT 42 % (40-54); LYMPHOCYTES # (AUTO) 1.7 10^3/uL (1.0-4.0); LYMPHOCYTES % (AUTO) 18 % (12-44); MEAN CORPUSCULAR HEMOGLOBIN 31 pg (25-34); MEAN CORPUSCULAR HGB CONC 34 g/dL (32-36); MEAN CORPUSCULAR VOLUME 92 fL (80-99); MEAN PLATELET VOLUME 10.4 fL (9.0-12.2); MONOCYTES # (AUTO) 0.9 10^3/uL (0.0-1.0); MONOCYTES % (AUTO) 10 % (0-12); NEUTROPHILS # (AUTO) 6.3 10^3/uL (1.8-7.8); NEUTROPHILS % (AUTO) 68 % (42-75); WHITE BLOOD COUNT 9.3 10^3/uL (4.3-11.0)
[2022-10-25 05:44] LABS: CALCIUM 9.5 MG/DL (8.5-10.1); CREATININE SERUM 1.39 MG/DL (0.60-1.30); POTASSIUM 3.8 MMOL/L (3.6-5.0)
[2022-10-25] MEDS: KCL 20 MEQ TAB (K-DUR) PO SCH (06:08)
[2022-10-25] MEDS: MAGNESIUM 1 GM/100 ML IVPB 100 ML IV SCH (06:08)
[2022-10-25] MEDS: POTASSIUM CL 10MEQ/50ML IVPB 50 ML IV SCH (06:08)
[2022-10-25 07:26] VITALS: BP 113/65
[2022-10-25] MEDS: amLODIPine 10 MG (NORVASC) TAB PO SCH (08:40)
[2022-10-25] MEDS: ISOSORBIDE MONONITRATE 30 MG (IMDUR) TAB PO SCH (08:40)
[2022-10-25] MEDS: DOCUSATE SODIUM 100 MG (COLACE) CAP PO SCH (08:40)
[2022-10-25] MEDS: CLOPIDOGREL 75 MG (PLAVIX) TABLET PO SCH (08:40)
[2022-10-25] MEDS: ASPIRIN 81 MG CHEW (CHILDREN'S ASA) PO SCH (08:41)
[2022-10-25] MEDS: PANTOPRAZOLE 40 MG (PROTONIX) TAB PO SCH (08:41)
[2022-10-25] MEDS ORDERED: KCL 20 MEQ TAB (K-DUR) PO ONE (09:00)
[2022-10-25] MEDS ORDERED: FUROSEMIDE 40 MG (LASIX) TAB PO SCH (09:00)
--- NOTE | 2022-10-25 09:33 | Progress Note - Cardiology ---
Cardiology SOAP Progress Note Subjective: Feels well and wants to go home Feels back to his baseline Objective: I&O/Vital Signs 10/24/22 10/24/22 10/25/22 10/25/22 21:50 23:29 03:16 06:12 Temp 36.9 37.1 Pulse 67 64 Resp 18 20 B/P (MAP) 127/70 (89) 127/72 (90) Pulse Ox 96 96 96 O2 Delivery Nasal Cannula Nasal Cannula Nasal Cannula Nasal Cannula O2 Flow Rate 2.00 2.00 2.00 2.00 10/25/22 07:26 Temp 36.6 Pulse 60 Resp 18 B/P (MAP) 113/65 (81) Pulse Ox 96 O2 Delivery Nasal Cannula O2 Flow Rate 2.50 10/25/22 00:00 Intake Total 1660 ml Balance 1660 ml Constitutional: AAO x 3, well-developed, well-nourished Respiratory: No accessory muscle use, No respiratory distress; chest expansion is symmetric, chest is bilaterally symmetric, rhonchi (scattered) Cardiovascular: regular rate-rhythm; No JVD; S1 and S2 Gastrointestional: No tender; soft, round, audible bowel sounds Extremities: no lower extremity edema bilateral Neurologic/Psychiatric: grossly intact (moves all extremities) Skin: No rash on exposed areas, No ulcerations on exposed areas Results/Procedures: Labs Laboratory Tests 10/25/22 05:10: White Blood Count 9.3, Red Blood Count 4.52, Hemoglobin 14.1, Hematocrit 42, Mean Corpuscular Volume 92, Mean Corpuscular Hemoglobin 31, Mean Corpuscular Hemoglobin Concent 34, Red Cell Distribution Width 11.9, Platelet Count 135, Mean Platelet Volume 10.4, Immature Granulocyte % (Auto) 0, Neutrophils (%) (Auto) 68, Lymphocytes (%) (Auto) 18, Monocytes (%) (Auto) 10, Eosinophils (%) (Auto) 4, Basophils (%) (Auto) 0, Neutrophils # (Auto) 6.3, Lymphocytes # (Auto) 1.7, Monocytes # (Auto) 0.9, Eosinophils # (Auto) 0.4H, Basophils # (Auto) 0.0, Immature Granulocyte # (Auto) 0.0, Percent Immature Platelet Fraction 3.8, Sodium Level 139, Potassium Level 3.8, Chloride Level 100, Carbon Dioxide Level 29, Anion Gap 10, Blood Urea Nitrogen 26H, Creatinine 1.39H, Estimat Glomerular Filtration Rate 55, BUN/Creatinine Ratio 19, Glucose Level 148H, Calcium Level 9.5, Magnesium Level 2.0 Laboratory Tests 10/23/22 10:32 10/24/22 04:49 10/25/22 05:10 A/P: Assessment: Progressive dyspnea - improved - Echo on 10/24/22: LVEF 55-60%, mod enlargement of both atria, PASP 45-50 mmHg MARISA - 1, likely due to intravascular volume depletion Mild, acute diastolic CHF - clinically improved Chest pain - chronic - at usual baseline (has had since CABG 7 yrs ago) CAD - H/O CABG at [facility] in [place], [place] - Left internal mammary to the LAD; saphenous vein graft to the 2nd and 1st diagonal branch; saphenous vein graft to the obtuse marginal circumflex branch - Stress test February 2015 a [facility] in [place], [place] was negative for ischemia - reports h/o stents at [facility] by Dr. Jean in 2020 - reports h/o cardiac cath at [facility] in Jun 2022 (no intervention per pt report) - he currently has a 30 day Bio-tel event monitor in place per his primary c ardiologist (Dr. Jean at [facility]) HTN - controlled HLD - statin DM 2 COPD - reports he is to be on oxygen at hs and PRN (has not been using) H/O cholecystectomy and appendectomy GERD BPH Plan: * Continue previous home meds * Reviewed records from [facility] * Ok to d/c from cardiac standpoint * Cardiac f/u is with his primary chucking and boring machine operator Dr Jean Clinical Quality Measures AMI/AHF: ASA po Prior to arrival: Yes (324MGASA/X1 NITRO) NICK ORTEGA Oct 25, 2022 09:33
[2022-10-25 12:00] VITALS: BP 145/63
--- NOTE | 2022-10-25 12:04 | Discharge Summary ---
Discharge Summary Hospital Course Problems/Dx: (1) Chest pain Status: Acute (2) CAD (coronary artery disease) Status: Chronic (3) HTN (hypertension) Status: Chronic (4) HLD (hyperlipidemia) Status: Chronic (5) T2DM (type 2 diabetes mellitus) Status: Chronic (6) Obesity Status: Chronic (7) BPH (benign prostatic hyperplasia) Status: Chronic (8) GERD (gastroesophageal reflux disease) Status: Chronic Hospital Course Date of Admission: Oct 23, 2022 at 13:47 Admission Diagnosis : Chest pain Family Physician/Provider: TenishaLocal Physician Date of Discharge: 10/25/22 Discharge Diagnosis: Chest pain Hospital Course: Rober Mcneal is a 67 year old male with PMH HTN, T2DM, HLD, CAD s/p CABG, BPH, GERD, obesity, who was admitted with chest pain. Cardiology was consulted and assisted with his care. His troponins remained negative. He had an echo with normal EF, moderate biatrial enlargement, and elevated PASP. His chest pain resolved. His dyspnea resolved. He reportedly had a left heart cath in June 2022 without need for intervention. He was discharged home in stable condition. He should resume home health care. He should follow up with his PCP in a week or two. He should call his filler shredder helper to see is his follow up appointment can be moved up. Labs and Pending Lab Test: Laboratory Tests 10/25/22 05:10: White Blood Count 9.3, Red Blood Count 4.52, Hemoglobin 14.1, Hematocrit 42, Mean Corpuscular Volume 92, Mean Corpuscular Hemoglobin 31, Mean Corpuscular Hemoglobin Concent 34, Red Cell Distribution Width 11.9, Platelet Count 135, Mean Platelet Volume 10.4, Immature Granulocyte % (Auto) 0, Neutrophils (%) (Auto) 68, Lymphocytes (%) (Auto) 18, Monocytes (%) (Auto) 10, Eosinophils (%) (Auto) 4, Basophils (%) (Auto) 0, Neutrophils # (Auto) 6.3, Lymphocytes # (Auto) 1.7, Monocytes # (Auto) 0.9, Eosinophils # (Auto) 0.4H, Basophils # (Auto) 0.0, Immature Granulocyte # (Auto) 0.0, Percent Immature Platelet Fraction 3.8, Sodium Level 139, Potassium Level 3.8, Chloride Level 100, Carbon Dioxide Level 29, Anion Gap 10, Blood Urea Nitrogen 26H, Creatinine 1.39H, Estimat Glomerular Filtration Rate 55, BUN/Creatinine Ratio 19, Glucose Level 148H, Calcium Level 9.5, Magnesium Level 2.0 Home Meds Active Reported Ibuprofen 200 Mg Tablet 400-600 Mg PO Q8H PRN Aspirin EC (Aspirin) 81 Mg Tablet.dr 81 Mg PO DAILY Diclofenac Sodium 75 Mg Tablet.dr 75 Mg PO BID LAST FILLED 06-14-2022 #180/90 DAY SUPPLY Clopidogrel (Clopidogrel Bisulfate) 75 Mg Tablet 75 Mg PO DAILY Cetirizine HCl 10 Mg Tablet 10 Mg PO DAILY Metformin HCl 500 Mg Tablet 500 Mg PO BID WITH MEALS Lisinopril 40 Mg Tablet 40 Mg PO DAILY Pantoprazole Sodium 20 Mg Tablet.dr 20 Mg PO DAILY Atorvastatin Calcium 20 Mg Tablet 20 Mg PO DAILY Amlodipine Besylate 10 Mg Tablet 10 Mg PO DAILY Isosorbide Mononitrate ER (Isosorbide Mononitrate) 30 Mg Tab.er.24h 30 Mg PO DAILY Flomax (Tamsulosin HCl) 0.4 Mg Cap 0.4 Mg PO 1800 TAKES 30 MINUTES BEFORE EVENING MEAL Myrbetriq (Mirabegron) 50 Mg Tab.er.24h 50 Mg PO DAILY Assessment/Pt Instructions See instructions Discharge Planning: <30 minutes discharge planning Discharge Instructions Discharge Diet: Low Sodium Diet Activity as Tolerated: Yes Consultations Cardiology Discharge Physical Examination Vital Signs Vital Signs Date Time Temp Pulse Resp B/P (MAP) Pulse Ox O2 Delivery O2 Flow Rate FiO2 10/25/22 08:00 Room Air 10/25/22 07:26 36.6 60 18 113/65 (05) 96 2.50 General Appearance: No Apparent Distress, Obese Respiratory: Lungs Clear, No Respiratory Distress Cardiovascular: Regular Rate, Rhythm, No Murmur Gastrointestinal: Normal Bowel Sounds, Soft Extremity: Normal Inspection, No Pedal Edema Skin: Normal Color, Warm/Dry Neurologic/Psychiatric: Alert, Oriented x3, No Motor/Sensory Deficits Allergies: Coded Allergies: Penicillins (Verified Allergy, Unknown, 10/23/22) Sulfa (Sulfonamide Antibiotics) (Verified Allergy, Unknown, 10/23/22) morphine (Verified Allergy, Unknown, 10/23/22) Discharge Summary Date of Admission Oct 23, 2022 at 13:47 Date of Discharge Discharge Date: Oct 25, 2022 Discharge Time: 12:00 Admission Diagnosis Chest pain Consults/Procedures Consulations Cardiology Discharge Diagnosis Chest pain CAD s/p CABG HTN HLD T2DM HFpEF GERD BPH Obesity (1) Chest pain Status: Acute (2) CAD (coronary artery disease) Status: Chronic (3) HTN (hypertension) Status: Chronic (4) HLD (hyperlipidemia) Status: Chronic (5) T2DM (type 2 diabetes mellitus) Status: Chronic (6) Obesity Status: Chronic (7) BPH (benign prostatic hyperplasia) Status: Chronic (8) GERD (gastroesophageal reflux disease) Status: Chronic Clinical Quality Measures AMI/AHF: ASA po Prior to arrival: Yes (324MGASA/X1 NITRO) PIO JURADO MD Oct 25, 2022 12:04
--- NOTE | 2022-10-25 12:41 | Progress Note - Cardiology ---
Cardiology SOAP Progress Note Subjective: Feels well and wishes to go home No n/v/d Dizziness present No cp (other than chronic, persistent, upper L chest wall discomfort) or pal or syncope or shortness of breath No swelling Objective: I&O/Vital Signs 10/25/22 10/25/22 10/25/22 10/25/22 03:16 06:12 07:26 08:00 Temp 37.1 36.6 Pulse 64 60 Resp 20 18 B/P (MAP) 127/72 (90) 113/65 (81) Pulse Ox 96 96 96 O2 Delivery Nasal Cannula Nasal Cannula Nasal Cannula Room Air O2 Flow Rate 2.00 2.00 2.50 10/25/22 00:00 Intake Total 1660 ml Balance 1660 ml Constitutional: AAO x 3, well-developed, well-nourished Respiratory: No accessory muscle use, No respiratory distress; chest expansion is symmetric, chest is bilaterally symmetric, rhonchi (scattered) Cardiovascular: regular rate-rhythm; No JVD; S1 and S2 Gastrointestional: No tender; soft, round, audible bowel sounds Extremities: no lower extremity edema bilateral Neurologic/Psychiatric: grossly intact (moves all extremities) Skin: No rash on exposed areas, No ulcerations on exposed areas Results/Procedures: Labs Laboratory Tests 10/25/22 05:10: White Blood Count 9.3, Red Blood Count 4.52, Hemoglobin 14.1, Hematocrit 42, Mean Corpuscular Volume 92, Mean Corpuscular Hemoglobin 31, Mean Corpuscular Hemoglobin Concent 34, Red Cell Distribution Width 11.9, Platelet Count 135, Mean Platelet Volume 10.4, Immature Granulocyte % (Auto) 0, Neutrophils (%) (Auto) 68, Lymphocytes (%) (Auto) 18, Monocytes (%) (Auto) 10, Eosinophils (%) (Auto) 4, Basophils (%) (Auto) 0, Neutrophils # (Auto) 6.3, Lymphocytes # (Auto) 1.7, Monocytes # (Auto) 0.9, Eosinophils # (Auto) 0.4H, Basophils # (Auto) 0.0, Immature Granulocyte # (Auto) 0.0, Percent Immature Platelet Fraction 3.8, Sodium Level 139, Potassium Level 3.8, Chloride Level 100, Carbon Dioxide Level 29, Anion Gap 10, Blood Urea Nitrogen 26H, Creatinine 1.39H, Estimat Glomerular Filtration Rate 55, BUN/Creatinine Ratio 19, Glucose Level 148H, Calcium Level 9.5, Magnesium Level 2.0 Laboratory Tests 10/24/22 04:49 10/25/22 05:10 A/P: Assessment: Shortness of breath, resolved - Echo on 10/24/22: LVEF 55-60%, mod enlargement of both atria, PASP 45-50 mmHg MARISA - 1, likely due to intravascular volume depletion - diuretics stopped Mild, acute diastolic CHF - clinically resolved Chest pain - chronic - at usual baseline (has had since CABG 7 yrs ago) CAD - H/O CABG at [facility] in [place], [place] - Left internal mammary to the LAD; saphenous vein graft to the 2nd and 1st diagonal branch; saphenous vein graft to the obtuse marginal circumflex branch - Stress test February 2015 a [facility] in [place], [place] was negative for ischemia - reports h/o stents at [facility] by Dr. Jean in 2020 - reports h/o cardiac cath at [facility] in Jun 2022 (no intervention per pt report) - he currently has a 30 day Bio-tel event monitor in place per his primary rubber goods finisher (Dr. Jean at [facility]) HTN - controlled HLD - statin DM 2 COPD - reports he is to be on oxygen at hs and PRN (has not been using) H/O cholecystectomy and appendectomy GERD BPH Plan: * Continue previous home meds * Reviewed records from [facility] * Ok to d/c from cardiac standpoint * Cardiac f/u is with his primary rubber goods finisher Dr Jean Clinical Quality Measures AMI/AHF: ASA po Prior to arrival: Yes (324MGASA/X1 NITRO) VICTOR M TRISTAN MD FACP FAC CCDS Oct 25, 2022 12:41
[2022-10-25 15:24] VITALS: BP 145/63
== END 2022-10-25 15:28 | disposition home or self-care (01) ==
LOC: EDUNIT# 10:29 → ER FS 10:30 → 4TH 13:47
PROVIDERS: ADMIT Internal Medicine; ATTEND Internal Medicine
DX: R07.9 Chest pain, unspecified (principal); E78.5 Hyperlipidemia, unspecified; I11.0 Hypertensive heart disease with heart failure; I50.31 Acute diastolic (congestive) heart failure; E11.9 Type 2 diabetes mellitus without complications; E66.9 Obesity, unspecified; N40.0 Benign prostatic hyperplasia without lower urinary tract symptoms; K21.9 Gastro-esophageal reflux disease without esophagitis; N17.9 Acute kidney failure, unspecified; I25.10 Atherosclerotic heart disease of native coronary artery without angina pectoris; J44.9 Chronic obstructive pulmonary disease, unspecified; R06.00 Dyspnea, unspecified
CPT/HCPCS: 36415; 71045; 80048 ×2; 80053; 80061; 83735 ×2; 83880; 84484 ×2; 85025 ×3; 93005 ×2; 96375; 96376; 99283; C8929; G0378; 93306; 96374

== ENCOUNTER 2023-02-01 10:35 | Emergency (ER) | payer MEDICARE, MEDICAID ==
[~2023-02-01] VITALS: Ht 177 cm; Wt 107.0 kg
[~2023-02-01 10:35] MED LIST: AMLO-251 PO; ASPI-1238 PO; ATOR20TA66 PO; CETI10TA17 PO; CLOP75TA28 PO; DICL75TA2 PO; IBUP-2473 PO; ISOS30TA82 PO; LISI40TA9 PO; METF-397 PO; MIRA50TA PO; PANT20TA18 PO; TMSL.4C PO
--- NOTE | 2023-02-01 10:45 | ED Chest Pain ---
General Stated Complaint: CHEST PAIN History of Present Illness Date Seen by Provider: Feb 01, 2023 Time Seen by Provider: 10:45 Initial Comments 67-year-old male presents with chest discomfort in the left chest this been present constantly since he awoke this morning around 7 to 7:30 AM. Patient reports that he has a little bit of pain in his left arm. He does have some underlying lung issues. He is mildly short of breath. Does not feel like anything makes the pain worse or better. He does have a previous history of 5 s tents. Allergies and Home Medications Allergies Coded Allergies: Penicillins (Verified Allergy, Unknown, 10/23/22) Sulfa (Sulfonamide Antibiotics) (Verified Allergy, Unknown, 10/23/22) morphine (Verified Allergy, Unknown, 10/23/22) Patient Home Medication List Home Medication List Reviewed: Yes Amlodipine Besylate (Amlodipine Besylate) 10 Mg Tablet, 10 MG PO DAILY, (Reported) Entered as Reported by: LACHO COHEN on 10/24/22 154 Aspirin (Aspirin EC) 81 Mg Tablet., 81 MG PO DAILY, (Reported) Entered as Reported by: LACHO COHEN on 10/24/22 154 Atorvastatin Calcium (Atorvastatin Calcium) 20 Mg Tablet, 20 MG PO DAILY, (Reported) Entered as Reported by: LACHO COHEN on 10/24/221539 Cetirizine HCl (Cetirizine HCl) 10 Mg Tablet, 10 MG PO DAILY, (Reported) Entered as Reported by: LACHO COHEN on 10/24/22 154 Clopidogrel Bisulfate (Clopidogrel) 75 Mg Tablet, 75 MG PO DAILY, (Reported) Entered as Reported by: LACHO COHEN on 10/24/22 154 Diclofenac Sodium (Diclofenac Sodium) 75 Mg Tablet.dr, 75 MG PO BID, (Reported) Entered as Reported by: LACHO COHEN on 10/24/22 154 Ibuprofen (Ibuprofen) 200 Mg Tablet, 400-600 MG PO Q8H PRN for PAIN-MILD (1-4), (Reported) Entered as Reported by: LACHO COHEN on 10/24/221539 Isosorbide Mononitrate (Isosorbide Mononitrate ER) 30 Mg Tab.er.24h, 30 MG PO DAILY, (Reported) Entered as Reported by: LACHO COHEN on 10/24/221539 Lisinopril (Lisinopril) 40 Mg Tablet, 40 MG PO DAILY, (Reported) Entered as Reported by: LACHO COHEN on 10/24/221539 Metformin HCl (Metformin HCl) 500 Mg Tablet, 500 MG PO BID WITH MEALS, (Reported) Entered as Reported by: LACHO COHEN on 10/24/221539 Mirabegron (Myrbetriq) 50 Mg Tab.er.24h, 50 MG PO DAILY, (Reported) Entered as Reported by: LACHO COHEN on 10/24/221539 Pantoprazole Sodium (Pantoprazole Sodium) 20 Mg Tablet.dr, 20 MG PO DAILY, (Reported) Entered as Reported by: LACHO COHEN on 10/24/221539 Tamsulosin HCl (Flomax) 0.4 Mg Cap, 0.4 MG PO 1800, (Reported) Entered as Reported by: LACHO COHEN on 10/24/221539 Review of Systems Review of Systems Constitutional: No chills, No fever Respiratory: Denies Cough; Shortness of Air Cardiovascular: Chest Pain; Denies Irregular Heart Rate, Denies Palpitations Gastrointestinal: Denies Abdominal Pain, Denies Nausea, Denies Vomiting Musculoskeletal: no symptoms reported Skin: no symptoms reported Psychiatric/Neurological: No Symptoms Reported Past [id number]-Mqrxce Hx Past Medical History Surgery/Hospitalization HX: CATARACT SURGERY; GALLBLADDER REMOVAL; COPD Coronary Artery Disease, High Cholesterol, Hypertension Benign Prostatic Hyperpl Gastroesophageal Reflux Diabetes, Non-Insulin dep Family Medical History No Pertinent Family Hx Physical Exam Vital Signs Vital Signs - First Documented 02/01/23 10:40 Temp 36.2 Pulse 75 Resp 16 B/P (MAP) 144/73 (96) Pulse Ox 95 O2 Delivery Room Air Capillary Refill : Height, Weight, BMI Height: '" Weight: lbs. oz. kg; 33.37 BMI Method: General Appearance: No Apparent Distress, WD/WN Respiratory: Lungs Clear, Normal Breath Sounds, No Accessory Muscle Use Cardiovascular: Regular Rate, Rhythm, No Edema Extremity: Normal Capillary Refill, Normal Inspection, Normal Range of Motion Neurologic/Psychiatric: Alert, Oriented x3, No Motor/Sensory Deficits, Normal Mood/Affect, cost manager II-XII Norm as Tested Skin: Normal Color, Warm/Dry Progress/Results/Core Measures Results/Orders Lab Results Laboratory Tests Test 02/01/23 10:43 02/01/23 11:00 02/01/23 12:33 Range/Units White Blood Count 7.6 4.3-11.0 10^3/uL Red Blood Count 5.18 4.30-5.52 10^6/uL Hemoglobin 15.4 13.3-17.7 g/dL Hematocrit 47 40-54 % Mean Corpuscular Volume 90 80-99 fL Mean Corpuscular Hemoglobin 30 25-34 pg Mean Corpuscular Hemoglobin Concent 33 32-36 g/dL Red Cell Distribution Width 12.9 10.0-14.5 % Platelet Count 132 130-400 10^3/uL Mean Platelet Volume 11.2 9.0-12.2 fL Immature Granulocyte % (Auto) 0 % Neutrophils (%) (Auto) 64 42-75 % Lymphocytes (%) (Auto) 22 12-44 % Monocytes (%) (Auto) 9 0-12 % Eosinophils (%) (Auto) 4 0-10 % Basophils (%) (Auto) 1 0-10 % Neutrophils # (Auto) 4.9 1.8-7.8 X 10^3 Lymphocytes # (Auto) 1.7 1.0-4.0 X 10^3 Monocytes # (Auto) 0.7 0.0-1.0 X 10^3 Eosinophils # (Auto) 0.3 0.0-0.3 10^3/uL Basophils # (Auto) 0.0 0.0-0.1 10^3/uL Immature Granulocyte # (Auto) 0.0 0.0-0.1 10^3/uL Percent Immature Platelet Fraction 0.0-7.6 % Sodium Level 137 135-145 MMOL/L Potassium Level 4.3 3.6-5.0 MMOL/L Chloride Level 100 98-107 MMOL/L Carbon Dioxide Level 27 21-32 MMOL/L Anion Gap 10 5-14 MMOL/L Blood Urea Nitrogen 15 7-18 MG/DL Creatinine 1.09 0.60-1.30 MG/DL Estimat Glomerular Filtration Rate 73 BUN/Creatinine Ratio 14 Glucose Level 288 H 70-105 MG/DL Calcium Level 9.4 8.5-10.1 MG/DL Corrected Calcium 9.3 8.5-10.1 MG/DL Total Bilirubin 2.2 H 0.1-1.0 MG/DL Aspartate Amino Transf (AST/SGOT) 34 5-34 U/L Alanine Aminotransferase (ALT/SGPT) 34 0-55 U/L Alkaline Phosphatase 32 L 40-136 U/L Troponin I < 0.30 < 0.30 <0.30 NG/ML Pro-B-Type Natriuretic Peptide 94.1 <125.0 PG/ML Total Protein 6.5 6.4-8.2 GM/DL Albumin 4.1 3.2-4.5 GM/DL Urine Color YELLOW Urine Clarity CLEAR Urine pH 5.5 5-9 Urine Specific [place] 1.025 H 1.016-1.022 Urine Protein NEGATIVE NEGATIVE Urine Glucose (UA) NEGATIVE NEGATIVE Urine Ketones NEGATIVE NEGATIVE Urine Nitrite NEGATIVE NEGATIVE Urine Bilirubin NEGATIVE NEGATIVE Urine Urobilinogen 0.2 < = 1.0 MG/DL Urine Leukocyte Esterase NEGATIVE NEGATIVE Urine RBC (Auto) NEGATIVE NEGATIVE Urine RBC NONE /HPF Urine WBC RARE /HPF Urine Squamous Epithelial Cells NONE /HPF Urine Crystals NONE /LPF Urine Bacteria NEGATIVE /HPF Urine Casts NONE /LPF Urine Mucus SMALL H /LPF Urine Culture Indicated NO My Orders Orders - SHAWN SURESH L DO Comprehensive Metabolic Panel (02/01/23 10:43) Ekg Tracing (02/01/23 10:43) Chest Pa/Lat (2 View) (02/01/23 10:43) Troponin I Fs (02/01/23 10:45) Probnp Fs (02/01/23 10:46) Cbc With Automated Diff (02/01/23 10:50) Urinalysis (02/01/23 10:57) Albuterol/Ipra Inhalation Soln (Duoneb I (02/01/23 11:15) Svn Small Volume Nebulizer (02/01/23 11:12) Ketorolac Injection (Toradol Injection) (02/01/23 11:36) Troponin I Fs (02/01/23 13:05) Medications Given in ED Current Medications Medications Dose Ordered Sig/Ino Route Start Time Stop Time Status Last Admin Dose Admin Albuterol/ Ipratropium 3 ml ONCE ONCE INH 02/01/23 11:15 02/01/23 11:16 DC 02/01/23 11:16 3 ML Vital Signs/I&O 02/01/23 10:40 Temp 36.2 Pulse 75 Resp 16 B/P (MAP) 144/73 (96) Pulse Ox 95 O2 Delivery Room Air Initial ECG Impression Date: Feb 01, 2023 Initial ECG Impression Time: 10:40 Initial ECG Rate: 76 Initial ECG Rhythm: Normal Sinus, PVC Comment nsr, pvc, incomplete RBBB, no acute st elevation or changes WA 173, QRS 102 Diagnostic Imaging Diagonstic Imaging: Xray Plain Films/CT/US/NM/MRI: chest Comments Date of Exam:02/01/23 CHEST PA/LAT (2 VIEW) CLINICAL INDICATION: Patient with chest pain. Patient has history of CHF. EXAM: Chest x-ray, PA and lateral views. COMPARISON: Chest x-ray dated 08/16/2022. FINDINGS: Lungs/pleura: Lungs are clear. There is no pneumothorax. There is no pleural effusion. Mediastinum: Unremarkable. Pulmonary vasculature: Unremarkable. Heart: There is interval progression of cardiomegaly. Again seen are postoperative changes to the chest consistent with CABG. Bones/extrathoracic soft tissue: There are hypertrophic spurs involving the thoracic spine. IMPRESSION: 1: There is no radiographic evidence of acute cardiopulmonary process. 2: There is interval progression of cardiomegaly with no significant pulmonary vascular congestion. Departure Impression Primary Impression: Chest pain Qualified Codes: R07.9 - Chest pain, unspecified Disposition: 01 HOME, SELF-CARE Condition: Stable Departure-Patient Inst. Referrals: JASBIR SIM APRN (PCP) Primary Care Physician NO,LOCAL PHYSICIAN (Family) Primary Care Physician Patient Instructions: Chest Pain That Is Not Caused by the Heart (DC), Chest Pain, Adult ED Add. Discharge Instructions: Please call your beater and pulper feeder and make them aware of your ER visit. Tylenol ibuprofen as needed for discomfort. Return to the ER with any concerns. SHAWN SURESH DO Feb 01, 2023 10:45
[2023-02-01 11:04] LABS: BILIRUBIN,URINE NEGATIVE (NEGATIVE); CLARITY,URINE CLEAR; COLOR,URINE YELLOW; GLUCOSE, URINE (UA) NEGATIVE (NEGATIVE); KETONES,URINE NEGATIVE (NEGATIVE); LEUKOCYTE ESTERASE ,URINE NEGATIVE (NEGATIVE); NITRITE,URINE NEGATIVE (NEGATIVE); PH,URINE 5.5 (5-9); PROTEIN,URINE NEGATIVE (NEGATIVE)
[2023-02-01 11:12] LABS: BACTERIA,URINE NEGATIVE /HPF; WBC,URINE RARE /HPF
[2023-02-01] MEDS ORDERED: RT-ALBUTEROL/IPRATROPIUM 3 ML (DUONEB) VIAL INH ONE (11:15)
--- NOTE | 2023-02-01 11:19 | Diagnostic Imaging Report ---
CLINICAL INDICATION: Patient with chest pain. Patient has history of CHF. EXAM: Chest x-ray, PA and lateral views. COMPARISON: Chest x-ray dated 08/16/2022. FINDINGS: Lungs/pleura: Lungs are clear. There is no pneumothorax. There is no pleural effusion. Mediastinum: Unremarkable. Pulmonary vasculature: Unremarkable. Heart: There is interval progression of cardiomegaly. Again seen are postoperative changes to the chest consistent with CABG. Bones/extrathoracic soft tissue: There are hypertrophic spurs involving the thoracic spine. IMPRESSION: 1: There is no radiographic evidence of acute cardiopulmonary process. 2: There is interval progression of cardiomegaly with no significant pulmonary vascular congestion. Dictated by: Dictated on workstation # [id number]
[2023-02-01 11:24] LABS: ALKALINE PHOSPHATASE 32 U/L (40-136); BILIRUBIN,TOTAL 2.2 MG/DL (0.1-1.0); BUN/CREATININE RATIO 14; CALCIUM 9.4 MG/DL (8.5-10.1); CARBON DIOXIDE 27 MMOL/L (21-32); CHLORIDE 100 MMOL/L (98-107); CREATININE SERUM 1.09 MG/DL (0.60-1.30); GFR ESTIMATED 73; GLUCOSE 288 MG/DL (70-105); POTASSIUM 4.3 MMOL/L (3.6-5.0); SODIUM 137 MMOL/L (135-145)
[2023-02-01 11:25] LABS: ALANINE AMINOTRANSFERASE 34 U/L (0-55); ALBUMIN 4.1 GM/DL (3.2-4.5); TOTAL PROTEIN 6.5 GM/DL (6.4-8.2); WHITE BLOOD COUNT 7.6 10^3/uL (4.3-11.0)
[2023-02-01 11:26] LABS: BASOPHILS % (AUTO) 1 % (0-10); EOSINOPHILS % (AUTO) 4 % (0-10); HEMATOCRIT 47 % (40-54); HEMOGLOBIN 15.4 g/dL (13.3-17.7); LYMPHOCYTES % (AUTO) 22 % (12-44); MEAN CORPUSCULAR HEMOGLOBIN 30 pg (25-34); MEAN CORPUSCULAR HGB CONC 33 g/dL (32-36); MEAN CORPUSCULAR VOLUME 90 fL (80-99); MEAN PLATELET VOLUME 11.2 fL (9.0-12.2); MONOCYTES % (AUTO) 9 % (0-12); NEUTROPHILS # (AUTO) 4.9 X 10^3 (1.8-7.8); NEUTROPHILS % (AUTO) 64 % (42-75); PLATELET COUNT 132 10^3/uL (130-400)
[2023-02-01 11:27] LABS: EOSINOPHILS # (AUTO) 0.3 10^3/uL (0.0-0.3); LYMPHOCYTES # (AUTO) 1.7 X 10^3 (1.0-4.0); MONOCYTES # (AUTO) 0.7 X 10^3 (0.0-1.0)
[2023-02-01] MEDS ORDERED: KETOROLAC 30 MG/ML VIAL IVP STA (11:36)
[2023-02-01 14:15] VITALS: BP 121/56
== END 2023-02-01 14:16 | disposition home or self-care (01) ==
LOC: EDUNIT# 10:35 → ER FS 10:39
DX: R07.89 Other chest pain (principal); I45.10 Unspecified right bundle-branch block; Z95.5 Presence of coronary angioplasty implant and graft
CPT/HCPCS: 36415; 71046; 80053; 81000; 83880; 84484; 85025; 93005